=== PATIENT | male | born 1950 | race Caucasian/White ===

== ENCOUNTER 2019-03-28 10:23 | Observation (INO) ==
[2019-03-28 12:53] LABS: Basophils # 0.1 10*3/uL (0.0-0.2); Basophils % 1.1 % (0.0-0.8); Eosinophils # 0.2 10*3/uL (0.0-0.87); Hematocrit 42.7 VOL% (42.0-52.0); Immature Granulocytes % 0.5 %; Immature Granulocytes Absolute 0.04 #; Lymphocytes # 2.1 10*3/uL (1.4-4.0); Lymphocytes % 24.7 % (21.2-54.2); Mean Corpuscular HGB Conc 30.4 GM/DL (32-36); Mean Corpuscular Volume 82.9 FL (87-102); Mean Platelet Volume 9.8 FL (9.6-12.0); Monocytes % 5.7 % (1.7-12.7); Platelet Count 247 T/CUMM (130-400); Red Blood Count 5.15 MC/CUMM (3.8-5.5); White Blood Count 8.4 T/CUMM (4-12)
[2019-03-28 13:12] LABS: Alanine Aminotransferase 17 U/L (16-61); Albumin 3.4 G/DL (3.4-5.0); Alkaline Phosphatase 63 U/L (45-117); Aspartate Amino Transferase 9 U/L (0-37); Bilirubin,Total < 0.39 MG/DL (0.2-1.0); Blood Urea Nitrogen 16 MG/DL (7-18); Calcium 9.4 MG/DL (8.5-10.1); Estimated Glom Filtration Rate 90 ML/MIN; Glucose 112 MG/DL (74-106); Osmolality,Calculated 282.3 MOS/KG (273-304)
[2019-03-28] MEDS ORDERED: metroNIDAZOLE INJ 500 MG in PREMIX 1 EACH IV STA (13:58)
[2019-03-28] MEDS ORDERED: CIPROFLOXACIN INJ 400 MG in PREMIX 1 EACH IV STA (13:58)
[2019-03-28] MEDS ORDERED: metroNIDAZOLE 500 MG/100 ML PREMIX IV ONE (14:03)
[2019-03-28] MEDS ORDERED: ONDANSETRON 4 MG/2 ML VIAL IV PRN (15:34)
[2019-03-28] MEDS ORDERED: MAGNESIUM SULF RIDER 4 GM in PREMIX 1 EACH IV PRN (15:34)
[2019-03-28] MEDS ORDERED: MAGNESIUM SULF RIDER 2 GM in PREMIX 1 EACH IV PRN (15:34)
[2019-03-28] MEDS ORDERED: HYDROmorphone 2 MG/1 ML VIAL IV PRN (15:34)
[2019-03-28] MEDS ORDERED: NITROGLYCERIN SL 0.4 MG TABLET SL PRN (15:37)
[2019-03-28] MEDS ORDERED: DEXTROSE 50% 25 GM/50 ML VIAL IV PRN (15:39)
[2019-03-28] MEDS ORDERED: GLUCAGON 1 MG VIAL IM PRN (15:39)
[2019-03-28] MEDS ORDERED: CIPROFLOXACIN INJ 400 MG in PREMIX 1 EACH IV SCH (16:00)
[2019-03-28] MEDS: INSULIN REGULAR 100 UNIT/ML SUBCUT SCH ×2 (17:30→20:58)
[2019-03-28] MEDS: metroNIDAZOLE INJ 500 MG in PREMIX 1 EACH IV SCH (20:30)
[2019-03-28] MEDS: carvediloL 6.25 MG TABLET PO SCH (20:30)
[2019-03-28] MEDS ORDERED: ROSUVASTATIN 20 MG TABLET PO SCH (21:00)
[2019-03-29] MEDS: metroNIDAZOLE INJ 500 MG in PREMIX 1 EACH IV SCH ×2 (02:35→08:46)
[2019-03-29 05:21] LABS: Basophils # 0.1 10*3/uL (0.0-0.2); Basophils % 0.7 % (0.0-0.8); Eosinophils # 0.1 10*3/uL (0.0-0.87); Eosinophils % 1.4 % (0.00-10.9); Hematocrit 37.5 VOL% (42.0-52.0); Hemoglobin 11.6 GM/DL (14.0-18.0); Immature Granulocytes % 0.5 %; Immature Granulocytes Absolute 0.05 #; Lymphocytes # 2.1 10*3/uL (1.4-4.0); Lymphocytes % 21.1 % (21.2-54.2); Mean Corpuscular HGB Conc 30.9 GM/DL (32-36); Mean Corpuscular Volume 81.2 FL (87-102); Mean Platelet Volume 10.2 FL (9.6-12.0); Monocytes % 5.7 % (1.7-12.7); Neutrophils % 70.6 % (38.7-73.9); Platelet Count 238 T/CUMM (130-400); Red Blood Count 4.62 MC/CUMM (3.8-5.5)
[2019-03-29 05:45] LABS: Albumin 2.9 G/DL (3.4-5.0); Bilirubin,Total 0.4 MG/DL (0.2-1.0); Calcium 8.7 MG/DL (8.5-10.1); Osmolality,Calculated 281.3 MOS/KG (273-304); Total Protein 6.7 G/DL (6.4-8.3)
[2019-03-29] MEDS: INSULIN REGULAR 100 UNIT/ML SUBCUT SCH ×2 (07:59→12:21)
[2019-03-29] MEDS ORDERED: CLOPIDOGREL 75 MG TABLET PO SCH (09:00)
[2019-03-29] MEDS ORDERED: PANTOPRAZOLE 40 MG VIAL IV SCH (09:00)
[2019-03-29] MEDS ORDERED: ASPIRIN EC 81 MG TABLET PO SCH (09:00)
[2019-03-29] MEDS ORDERED: VALSARTAN 160 MG TABLET PO SCH (09:00)
[2019-03-29] MEDS: carvediloL 6.25 MG TABLET PO SCH (09:01)
[2019-03-29] MEDS ORDERED: CIPROFLOXACIN 500 MG TABLET PO SCH (11:00)
[2019-03-29 11:56] VITALS: BP 149/77
[2019-03-29] MEDS ORDERED: metroNIDAZOLE 500 MG TABLET PO SCH (13:00)
[2019-03-29] MEDS ORDERED: DOCUSATE SODIUM 100 MG CAPSULE PO SCH (21:00)
== END 2019-03-29 13:15 | disposition home or self-care (01) ==
LOC: N.ED 10:23 → INTOOBSV 15:37 → N.EDINP 15:37 → N.2E 16:07